=== PATIENT | male | born 1970 | race Caucasian/White ===

== ENCOUNTER 2017-02-05 16:16 | Emergency (ER) | payer OTHER, SELFPAY ==
[~2017-02-05 16:16] MED LIST: ACETAMINOPHEN325 MG PO; BACTRIM DS TAB1 EACH PO; COZAAR50 MG PO; CYCLOBENZAPRINE10 MG PO; GLUCOPHAGE500 MG PO; HYDROCHLOROTHIA25 MG PO; HYDROCODON-ACE1 EAC2 PO; IBUPROFEN600 MG PO; LACTINEX PO; LEVAQUIN750 MG PO; METOPROLOL TART25 MG PO; OMEPRAZOLE40 MG PO; PRILOSEC40 MG PO; TRAZODONE HCL50 MG PO; ZOCOR40 MG PO; ZOFRAN4 MG PO
== END 2017-02-05 21:18 | disposition home or self-care (01) ==
LOC: ER 16:16
DX: K80.20 Calculus of gallbladder without cholecystitis without obstruction (principal); R06.02 Shortness of breath; E11.9 Type 2 diabetes mellitus without complications; I10 Essential (primary) hypertension; E78.5 Hyperlipidemia, unspecified; Z87.442 Personal history of urinary calculi; Z79.84 Long term (current) use of oral hypoglycemic drugs; Z79.899 Other long term (current) drug therapy; Z87.891 Personal history of nicotine dependence
CPT/HCPCS: 36415; 96374; 96375; 96376; Q9967

== ENCOUNTER 2017-02-08 10:51 | Emergency (ER) | payer OTHER | END 2017-02-08 14:20 | disposition home or self-care (01) | LOC: ER 10:51 | DX: K80.70 Calculus of gallbladder and bile duct without cholecystitis without obstruction (principal); E11.9 Type 2 diabetes mellitus without complications; I10 Essential (primary) hypertension; Z87.442 Personal history of urinary calculi; Z79.84 Long term (current) use of oral hypoglycemic drugs; Z79.899 Other long term (current) drug therapy | CPT/HCPCS: 36415; 96374; 96375; 96376 ==

== ENCOUNTER → 2017-02-11 | Day surgery (SDC) | payer OTHER, SELFPAY | END | disposition home or self-care (01) | LOC: SDC 06:29 → LAB 16:04 | DX: K81.1 Chronic cholecystitis (principal); K44.9 Diaphragmatic hernia without obstruction or gangrene; E11.9 Type 2 diabetes mellitus without complications; I10 Essential (primary) hypertension; G47.33 Obstructive sleep apnea (adult) (pediatric); N40.0 Benign prostatic hyperplasia without lower urinary tract symptoms; G25.81 Restless legs syndrome; Z87.01 Personal history of pneumonia (recurrent); Z87.19 Personal history of other diseases of the digestive system; Z87.442 Personal history of urinary calculi | CPT/HCPCS: C1894; J1885; J2704; J2765; Q9967 ==

== ENCOUNTER 2017-02-25 11:32 | Emergency (ER) | payer OTHER, SELFPAY | END 2017-02-25 16:25 | disposition home or self-care (01) | LOC: ER 11:32 | DX: R10.13 Epigastric pain (principal); R91.1 Solitary pulmonary nodule; R11.0 Nausea; E11.9 Type 2 diabetes mellitus without complications; E78.5 Hyperlipidemia, unspecified; I10 Essential (primary) hypertension; Z87.442 Personal history of urinary calculi; Z79.84 Long term (current) use of oral hypoglycemic drugs; Z79.899 Other long term (current) drug therapy; Z90.49 Acquired absence of other specified parts of digestive tract | CPT/HCPCS: 36415; 96374; 96375; 96376; J1885; Q9967 ==